=== PATIENT | female | born 1935 | race Caucasian/White ===

== ENCOUNTER 2016-04-09 11:33 | Emergency (ER) | payer MEDICARE, OTHER ==
[2016-04-09] MEDS ORDERED: ONDANSETRON 4 MG/2ML 2 ML VIAL ONE (12:14)
[2016-04-09] MEDS ORDERED: SODIUM CHLORIDE 0.9% 1,000 ML ONE (12:14)
[2016-04-09 12:50] LABS: BASO % 0.3 % (0.2-1.0); EOS # 0.1 (0.0-0.5); HEMATOCRIT 39.4 % (37.0-47.0); HEMOGLOBIN 12.6 gm/l (12.0-16.0); IMM NEUT% 0.2 % (0-1); LYMPH # 2.5 (1.0-4.8); LYMPH % 27.7 % (15-45); MEAN CELL VOLUME 94.5 fl (81.0-99.0); MEAN CORPUSCULAR HEMOGLOBIN 30.2 pg (27.0-31.0); MEAN PLATELET VOLUME 8.7 fl (7.4-10.4); MONO # 1.3 (0.0-0.8); MONO % 14.1 % (4-12); NEUT % 56.7 % (43-75); PLATELET COUNT 306 K/mm3 (130-400); RED CELL DISTRIBUTION WIDTH 12.9 % (11.5-14.5)
[2016-04-09 13:03] LABS: ALB/GLOB RATIO 1.1 (>1.0); ALBUMIN 3.5 gm/dL (3.5-5.7); CALCIUM 8.8 mg/dL (8.6-10.3)
[2016-04-09] MEDS ORDERED: ALBUTEROL/IPRATROPIUM 2.5/0.5 MG 3 ML/EACH DOSE ONE (13:03)
--- NOTE | 2016-04-09 14:22 | RAD ---
Name: ALYSE MARX Exam: Two-view chest Comparison: 05/12/2012 Clinical history: Cough and fever Findings: 2 views the chest are submitted. Heart is nonenlarged. There is calcification of the aorta. Mediastinum and hilar structures normal. COPD with scarring is present. There is no failure, infiltrate, pleural effusion or pneumothorax. There is a mild levoscoliosis centered in the lower thoracic spine. There is vague lucency through the surgical neck of the proximal left humerus however this appears to be artifact Impression: 1. COPD
== END 2016-04-09 14:23 | disposition home or self-care (01) ==
LOC: ED 11:33
DX: J06.9 Acute upper respiratory infection, unspecified (principal); J40 Bronchitis, not specified as acute or chronic; I49.9 Cardiac arrhythmia, unspecified; I48.91 Unspecified atrial fibrillation; E78.00 Pure hypercholesterolemia, unspecified; I10 Essential (primary) hypertension; M19.90 Unspecified osteoarthritis, unspecified site; Z79.899 Other long term (current) drug therapy; Z79.82 Long term (current) use of aspirin; Z88.6 Allergy status to analgesic agent; Z88.0 Allergy status to penicillin; Z88.8 Allergy status to other drugs, medicaments and biological substances; Z87.891 Personal history of nicotine dependence
CPT/HCPCS: 85025; 80053; 71020; 87804; 94640; 96375; 99283 ×2; 96374; 96361 ×2; J2405; J7030